=== PATIENT | female | born 1995 | race Caucasian/White ===

== ENCOUNTER 2023-04-22 17:54 | Inpatient (IN) ==
--- NOTE | 2023-04-22 18:11 | Emergency Department Note ---
Impression & Plan Bacteremia, Pyelonephritis of right kidney, Sepsis ED Provider Note NAME: DAY MALONE AGE: 27 SEX: F : 1995 ARRIVES VIA: Walk-In INFORMANT: Patient ED PROVIDER(S): Mekhi Bryant DO CHIEF COMPLAINT: Bacteremia HPI: Patient is a 27-year-old female who presents to the ER for dysuria, urgency, and frequency which has been present for the past week. She notes that Saturday night she started having fevers, chills, and feeling very rundown. Denies any headache or change in vision but does have back and flank pain. No dysuria urgency frequency. Has taken 2 doses of cefdinir since getting home. She notes that she has never had this before. No other medical problems. ADDITIONAL HISTORY OBTAINED: Per HPI Chronic Medical/Social Conditions Affecting Care: Per HPI PAST MEDICAL HISTORY:See Below PAST SURGICAL HISTORY:See Below FAMILY HISTORY:See Below SOCIAL HISTORY:See Below HOME MEDICATIONS:See Below ALLERGIES:See Below VITALS:See Below PHYSICAL EXAMINATION: GENERAL: Sitting up in bed, alert, well appearing, well nourished, no distress, non-toxic EYE EXAM: normal conjunctiva. PERRL and EOM's grossly intact. OROPHARYNX: mucous membranes are moist NECK: supple, no nuchal rigidity, no adenopathy, non-tender LUNGS: Clear to auscultation. Normal chest wall mechanics HEART: Tachycardic, S1 normal and S2 normal ABDOMEN: abdomen soft, non-tender, normo-active bowel sounds, no masses, no rebound or guarding. UPPER EXTREMITIES: upper extremities are grossly normal. LOWER EXTREMITIES: No pitting edema. NEURO EXAM: Normal sensorium, cranial nerves II-XII grossly intact, normal speech, no gross weakness of arms, no gross weakness of legs. MEDICAL DECISION MAKING: Patient is a 27-year-old female who presents ER for above-stated complaint. IV was established blood work was obtained. Labs show leukocytosis of 14,000. Mild anemia 11.8. BMP along with LFTs bilirubin and troponin was unremarkable. CRP was elevated as well as Pro-Jaiden. Blood cultures are positive for gram- negative bacilli. Patient was given IV fluids x 2 L and IV cefepime. She was updated at bedside and discussed with the hospitalist for further workup. Consults/Care Managements Discussions: Per MDM Triage Nursing notes reviewed. Limited review of prior medical records performed Vital Signs: reviewed and remarkable for febrile and tachycardic Differential diagnosis: Differential diagnosis includes etiologies such as sepsis, UTI, pneumonia, metabolic, electrolyte abnormalities, cardiac sources, intracerebral event, toxicologic, neurological, as well as others were entertained. ER treatment provided: See below Diagnostics interpreted by me include EKG and cardiac monitoring as listed below: -Cardiac Monitoring: An order was placed for continuous cardiac monitoring. The monitor shows a rate of 101 with sinus rhythm. -ECG: none -Laboratory studies:Interpreted by me as stated above in MDM and shown below. Imaging studies: Xrays: As interpreted by me:none CTs show: none Procedures:none Critical Care: None Past Med/Surg History Social History Smoking Status: Never smoker Hx Alcohol Use: Yes Hx Substance Use: No Preferred Language: Wolof Security And Compliance Analyst Required: No Beliefs That Will Affect Care: None Current Living Situation: Spouse Other Information That Helps Us Care for You: No Feels Safe at Home: Yes Safety Concerns: Feels Safe At This Time Assistive Devices: None Allergies Allergies Allergy/AdvReac Type Severity Reaction Status Date / Time Sulfa (Sulfonamide Allergy Unknown Hives Verified 04/21/23 15:55 Antibiotics) Home Meds Home Medications Medication Instructions Recorded Confirmed norgestimate 0.25 mg-ethinyl 1 tab PO HS 04/21/23 04/22/23 estradiol 35 mcg tablet (Sprintec (28)) sertraline 100 mg tablet 100 mg PO HS 04/21/23 04/22/23 cefdinir 300 mg capsule 300 mg PO Q12 04/22/23 04/22/23 Results & Data (ED) Vital Signs Vital Signs - 24 hr 04/22/23 17:59 04/22/23 18:34 04/22/23 18:46 Temperature 39.3 C H Temperature Source Oral Pulse Rate 120 H 113 H Pulse Rate from SpO2 Sensor 111 H Respiratory Rate 21 12 Blood Pressure 153/104 H 146/88 H Blood Pressure Mean 120 107 Pulse Oximetry 98 100 99 Oxygen Delivery Method Room Air Room Air Sepsis Recent Fever Within 48 Hours Yes Sepsis New/Unexplained Change in Mental Status N/A Sepsis Action Taken by Nursing No Action Required 04/22/23 18:46 Temperature Temperature Source Pulse Rate 111 H Pulse Rate from SpO2 Sensor Respiratory Rate Blood Pressure Blood Pressure Mean Pulse Oximetry Oxygen Delivery Method Sepsis Recent Fever Within 48 Hours Sepsis New/Unexplained Change in Mental Status Sepsis Action Taken by Nursing Laboratory Data 04/22/23 18:27 04/22/23 18:27 Lab Results 04/22/23 04/22/23 Range/Units 18:27 18:31 WBC 14.08 H (4.8-10.8) K/ul RBC 4.43 (4.20-5.40) M/uL Hgb 11.8 L (12.0-16.0) g/dl Hct 37.2 (37.0-47.0) % MCV 84.0 (80.0-100.0) fL MCH 26.6 (25.0-34.0) pg MCHC 31.7 L (32.0-36.0) g/dL RDW Std Deviation 44.7 (36.4-46.3) fL RDW Coeff of Sekou 14.5 (11.5-14.5) % Plt Count 216 (130-400) K/uL MPV 10.4 (9.4-12.4) fL Immature Gran % (Auto) 0.4 % Neut % (Auto) 79.9 % Lymph % (Auto) 9.4 % Gall[place] % (Auto) 9.6 % Eos % (Auto) 0.4 % Baso % (Auto) 0.3 % Neut # (Auto) 11.26 H (1.40-6.50) K/uL Lymph # (Auto) 1.32 (1.20-3.40) K/uL Gall[place] # (Auto) 1.35 H (0.11-0.59) K/uL Eos # (Auto) 0.05 (0.00-0.50) K/uL Baso # (Auto) 0.04 (0.00-0.20) K/uL Immature Gran # (Auto) 0.06 (0.01-0.20) K/uL Sodium 134 L (136-145) mmol/L Potassium 3.5 (3.5-5.1) mmol/L Chloride 102 (98-107) mmol/L Carbon Dioxide 23 (21-32) mmol/L Anion Gap 9 (3-11) BUN 8 (6-23) mg/dl Creatinine 0.79 (0.6-1.2) mg/dl Est Cr Clr Drug Dosing 107.2 ml/min Est GFR ( Amer) 119.7 ml/min Est GFR (Non-Af Amer) 103.3 ml/min BUN/Creatinine Ratio 10.1 (10-20) Glucose 103 H (70-99(Fasting)) mg/dl Lactate 0.9 (0.4-2.0) mmol/L Calcium 8.4 L (8.6-10.3) mg/dl Magnesium 1.6 L (1.7-2.4) mg/dl Total Bilirubin 0.4 (0.2-1.0) mg/dl Direct Bilirubin 0.1 (0-0.2) mg/dl AST 15 (13-39) U/L ALT 13 (7-52) U/L Alkaline Phosphatase 76 (34-104) U/L Troponin I High Sens 4.2 (0-14) pg/ml C-Reactive Protein 26.06 H (0-0.5) mg/dl Total Protein 6.7 (6.0-8.3) gm/dl Albumin 3.6 (3.4-5.0) gm/dl Procalcitonin 0.80 H (0-0.5) ng/ml Administered Medications Ciprofloxacin (Cipro / D5w) 400 mg in 200 mls @ 100 mls/hr IV Q12H [facility]; Protocol Stop: 05/02/23 20:44 Last Infusion: 04/22/23 22:41 Dose: Infused Documented By: [facility] Admin: 04/22/23 20:41 Dose: 100 mls/hr [place] [facility] [place] Sulfate/Dextrose (Magnesium Sulfate / D5w) 1 gm in 100 mls @ 50 mls/hr IV Q2H JENNIFER Stop: 04/23/23 01:44 Last Admin: 04/22/23 22:41 Dose: 50 mls/hr [place]ed [place] [facility] [place]: 04/22/23 22:40 Dose: Infused [place]ed [place] [facility] [place] Admin: 04/22/23 20:22 Dose: 50 mls/hr [place]ed [place] [facility] [place] Medications Acetaminophen (Acetaminophen 325 Mg Tab) 650 mg PO NOW STA Stop: 04/22/23 18:11 Last Admin: 04/22/23 18:26 Dose: 650 mg Documented By: Cefepime HCl (Maxipime) 2,000 mg in 20 mls @ 5 mls/min IV NOW STA; Protocol Stop: 04/22/23 18:13 Last Admin: 04/22/23 18:26 Dose: 5 mls/min Documented By: KATH Sodium Chloride (Nss) 1,000 mls @ 999 mls/hr IV .Q1H1M JENNIFER Stop: 04/22/23 20:15 Last Infusion: 04/22/23 20:29 Dose: Infused Documented By: Admin: 04/22/23 18:46 Dose: 999 mls/hr Documented By: Infusion: 04/22/23 18:46 Dose: Infused Documented By: Admin: 04/22/23 18:25 Dose: 999 mls/hr Documented By: KATH Ketorolac Tromethamine (Ketorolac Tromethamine 15 Mg/Ml Vial) 15 mg IV NOW ONE Stop: 04/22/23 18:15 Last Admin: 04/22/23 18:26 Dose: 15 mg Documented By: KATH Discharge Plan Visit Data Chief Complaint: Abnormal Labs/Diagnostic Testing Stated Complaint: ECOLI IN BLOOD, CALLED BACK IN ED Provider: Mekhi Bryant Discharge Problem: Bacteremia, Pyelonephritis of right kidney, Sepsis Patient Disposition: Admitted As Inpatient Discharge Instructions Interventions: ED Discharge Assessment Last Done: 04/22/23 22:46 Discharge Problem: Sepsis Qualifiers: Sepsis type: sepsis due to unspecified organism Sepsis acute organ dysfunction status: unspecified Qualified Code(s): A41.9 - Sepsis, unspecified organism
[2023-04-22] MEDS: SODIUM CHLORIDE 0.9% 1,000 ML IV SCH (18:25)
[2023-04-22] MEDS: CEFEPIME 2,000 MG/20 ML VIAL IV STA (18:26)
[2023-04-22] MEDS: KETOROLAC TROMETHAMINE 15 MG/ML VIAL IV ONE (18:26)
[2023-04-22] MEDS: ACETAMINOPHEN 325 MG TAB PO STA (18:26)
--- NOTE | 2023-04-22 18:34 | History & Physical Report ---
Date of Service April 22, 2023 Assessment & Plan (1) Sepsis: (2) Pyelonephritis of right kidney: (3) Febrile illness, acute: Plan Ms. Flanagan is a 27 year old woman with past medical history remarkable for depression who presented to [facility] ED due to right flank pain and positive blood culture PCR on 04/20. Patient with symptoms starting last Saturday, marked by dysuria and frequency. Patient states she went to urgent care on Saturday due to flank pain that started on the right side, then to [facility] ED on Saturday. Patient completed 2 days of cefdinir, but presented to ED today at request of ED given blood PCR + for e coli and enterobacterales. #Sepsis 2/2 GNR bacteremia #Acute complicated Pyelonephritis -WBC, tachycardia, +UA/blood cultures, fever 39C -s/p cefdinir x 2 days, cefepime upon admission Blood culture with GNR 04/20, pcr enterobacterales/e coli -Given above and iso pyelo, start IV cipro 400mg q12 -ID consult for recommendations on abx and duration -Follow cultures #Hyponatremia -Potentially iso poor po intake/active infection -Repeat BMP #Acute anemia, iso infection/bacteremia -No signs of bleed at this time -Anemia labs in am #Depression Continue 100mg sertraline DVT lovenox PCU tele Admission and Anticipated Discharge Date Admission Date: Time spent evaluating patient, direct bedside care, chart review, placing orders, interpretation of diagnostic studies, discussion with consultants, patient, and family members, as well as other required patient management activities is 60 minutes. History of Present Illness Chief Complaint: Right flank pain Primary Care Provider: NO PCP Ms. Flanagan is a 27 year old woman with past medical history remarkable for depression who presented to [facility] ED due to right flank pain and positive blood culture PCR on 04/20. Patient with symptoms starting last Saturday, marked by dysuria and frequency. Patient states she went to urgent care on Saturday due to flank pain that started on the right side, then to [facility] ED on Saturday. Patient completed 2 days of cefdinir, but presented to ED today at request of ED given blood PCR + for e coli and enterobacterales. In the ED, vitals were notable for BP of 140s-150s, HR of 110-120s, and O2 sat of high 90s on RA. Labs with WBC of 14K (down from 17 04/20), hgb 11.8 (14 day prior), mild hyponatremia 134, mag 1.[address] AB/P 04/20 with findings c/w right ascending pyelonephritis EKG with sinus tachycardia ED interventions: 2L NS, cefepime, tylenol Patient to be admitted to PCU tele for further evaluation and management of sepsis 2/2 acute complicated pyelonephritis with GNR bacteremia Allergies Allergy/AdvReac Type Severity Reaction Status Date / Time Sulfa (Sulfonamide Allergy Unknown Hives Verified 04/21/23 15:55 Antibiotics) Home Medications Medication Instructions Recorded Confirmed Type norgestimate 0.25 mg-ethinyl 1 tab PO HS 04/21/23 04/22/23 History estradiol 35 mcg tablet (Sprintec (28)) sertraline 100 mg tablet 100 mg PO HS 04/21/23 04/22/23 History cefdinir 300 mg capsule 300 mg PO Q12 04/22/23 04/22/23 History Past Med/Surg History Social History Smoking Status: Never smoker Preferred Language: Tajik Feels Safe at Home: Yes Review of Systems Review of Systems: Constitutional: (+) fever/chills, (-) recent loss of weight, (-) appetite changes, (-) night sweats. Head: (-) headache, (-) dizziness. Eye: (-) blurring of vision, (-) double vision, (-) redness. Ear: (-) hearing loss, (-) discharge, (-) vertigo Nose: (-) discharge, (-) bleeding, (-) congestion, (-) post nasal drip. Throat: (-) sore throat, (-) hoarseness of voice, (-) odynophagia. Cardiovascular: (-) chest pain, (-) palpitations, (-) syncope, (-) orthopnea, (- ) PND, (-) leg swelling. Respiratory: (-) shortness of breath, (-) cough, (-) wheezing, (-) hemoptysis. Neuro: (-) weakness in extremities, (-) numbness, (-) tingling, (-) tremor. Gastrointestinal: (-) belly pain, (-) belly distension, (-) nausea, (-) vomiting, (-) diarrhea, (-) constipation Genitourinary: (-) hematuria, (+) dysuria, (-) polyuria, (-) hesitancy, (+) frequency, (-) urinary incontinence. Musculoskeletal: (-) myalgia, (-) arthralgia. Skin: (-) rashes. Endocrine: (-) heat/cold intolerance. Psychiatry: (-) depression, (-) hallucination. Physical Exam Physical Exam: GENERAL APPEARANCE: AxOx4, ill appearing woman, no acute distress. HEENT: NC, AT. MMM. EOMI, clear conjunctiva, oropharynx clear. NECK: Supple without lymphadenopathy. No stiffness or restricted ROM. HEART: tachycardic, normal S1/S1, no m/r/g LUNGS: CTAB, moving air well. No crackles or wheezes are heard. ABDOMEN: Soft, nontender, nondistended with good bowel sounds heard. BACK: + right CVAT, no obvious deformity. EXTREMITIES: Without cyanosis, clubbing or edema. NEUROLOGICAL: Grossly nonfocal. Alert and oriented, moving all 4 extremities. CN not formally tested but appear grossly intact. Skin: Warm and dry without any rash. Results & Data Results & Data Vital Signs (Past 12 Hours) Vital Signs Temp Pulse Resp BP Pulse Ox O2 Del Method 04/22/23 17:59 39.3 C H 120 H 21 153/104 H 98 Room Air Laboratory Results Short CBC 04/22/23 Range/Units 18:27 WBC 14.08 H (4.8-10.8) K/ul Hgb 11.8 L (12.0-16.0) g/dl Hct 37.2 (37.0-47.0) % Plt Count 216 (130-400) K/uL BMP 04/22/23 18:27 Sodium 134 L Potassium 3.5 Chloride 102 Carbon Dioxide 23 BUN 8 Creatinine 0.79 Glucose 103 H Calcium 8.4 L Liver Function 04/22/23 Range/Units 18:27 Total Bilirubin 0.4 (0.2-1.0) mg/dl Direct Bilirubin 0.1 (0-0.2) mg/dl AST 15 (13-39) U/L ALT 13 (7-52) U/L Alkaline Phosphatase 76 (34-104) U/L Albumin 3.6 (3.4-5.0) gm/dl Medications Administered Home Medications Medication Instructions Recorded Confirmed Last Taken norgestimate 0.25 mg-ethinyl 1 tab PO HS 04/21/23 04/22/23 04/20/23 estradiol 35 mcg tablet (Sprintec (28)) sertraline 100 mg tablet 100 mg PO HS 04/21/23 04/22/23 04/20/23 cefdinir 300 mg capsule 300 mg PO Q12 04/22/23 04/22/23 Unknown Active Medications Generic Name Dose Route Start Last Admin Trade Name Freq PRN Reason Stop Dose Admin Sodium Chloride 1,000 mls @ 999 mls/hr 04/22/23 18:15 04/22/23 18:46 Nss IV 04/22/23 20:15 999 mls/hr .Q1H1M JENNIFER Administration
[2023-04-22 19:07] LABS: Albumin Level 3.6 gm/dl (3.4-5.0); BUN Creatinine Ratio 10.1 (10-20); Basophils # (auto) 0.04 K/uL (0.00-0.20); Basophils % (auto) 0.3 %; Bilirubin Direct 0.1 mg/dl (0-0.2); Bilirubin,Total 0.4 mg/dl (0.2-1.0); Calcium 8.4 mg/dl (8.6-10.3); Creatinine Clr Calc Pharmacy 107.2 ml/min; Eosinophils # (auto) 0.05 K/uL (0.00-0.50); Eosinophils % (auto) 0.4 %; Est GFR (African American) 119.7 ml/min; Est GFR (Non-African American) 103.3 ml/min; Hematocrit (blood only) 37.2 % (37.0-47.0); Hemoglobin 11.8 g/dl (12.0-16.0); Immature Granulocytes # (auto) 0.06 K/uL (0.01-0.20); Immature Granulocytes % (auto) 0.4 %; Lymphocytes # (auto) 1.32 K/uL (1.20-3.40); Lymphocytes % (auto) 9.4 %; Magnesium 1.6 mg/dl (1.7-2.4); Mean Corpuscular Hemoglobin 26.6 pg (25.0-34.0); Mean Corpuscular Hgb Conc 31.7 g/dL (32.0-36.0); Mean Platelet Volume 10.4 fL (9.4-12.4); Monocytes # (auto) 1.35 K/uL (0.11-0.59); Monocytes % (auto) 9.6 %; Neutrophils # (auto) 11.26 K/uL (1.40-6.50); Neutrophils % (auto) 79.9 %; Platelet Count 216 K/uL (130-400); Potassium 3.5 mmol/L (3.5-5.1); RDW Coefficient of Variation 14.5 % (11.5-14.5); RDW Standard Deviation 44.7 fL (36.4-46.3); Red Blood Count 4.43 M/uL (4.20-5.40); Total Protein 6.7 gm/dl (6.0-8.3); White Blood Count 14.08 K/ul (4.8-10.8)
[2023-04-22 19:14] LABS: Troponin I High Sensitivity 4.2 pg/ml (0-14)
[2023-04-22 20:11] LABS: C Reactive Protein 26.06 mg/dl (0-0.5)
[2023-04-22] MEDS: MAGNESIUM SULFATE / D5W 1 GM/100 ML BAG IV SCH (20:22)
[2023-04-22] MEDS: CIPROFLOXACIN / D5W 400 MG/200 ML BAG IV SCH (20:41)
[2023-04-22] MEDS ORDERED: ONDANSETRON INJ 2 MG/ML 2 ML VIAL IV PRN (23:36)
[2023-04-22] MEDS ORDERED: POLYETHYLENE (MIRALAX) 17 GM PACK PO PRN (23:36)
[2023-04-23] MEDS: SERTRALINE HCL 100 MG TABLET PO SCH (00:17)
[2023-04-23] MEDS: ENOXAPARIN INJ 40 MG/0.4 ML SYR SQ SCH (00:18)
[2023-04-23] MEDS: ACETAMINOPHEN 325 MG TAB PO PRN (03:10)
[2023-04-23 06:44] LABS: Hematocrit (blood only) 34.8 % (37.0-47.0); Hemoglobin 11.6 g/dl (12.0-16.0); Mean Corpuscular Hemoglobin 27.5 pg (25.0-34.0); Mean Corpuscular Hgb Conc 33.3 g/dL (32.0-36.0); Mean Corpuscular Volume 82.5 fL (80.0-100.0); Mean Platelet Volume 10.4 fL (9.4-12.4); Platelet Count 226 K/uL (130-400); RDW Coefficient of Variation 14.6 % (11.5-14.5); RDW Standard Deviation 43.8 fL (36.4-46.3); Red Blood Count 4.22 M/uL (4.20-5.40); White Blood Count 12.44 K/ul (4.8-10.8)
[2023-04-23 07:19] LABS: Albumin Globulin Ratio 1.2 (0.9-2); Albumin Level 3.4 gm/dl (3.4-5.0); BUN Creatinine Ratio 10.2 (10-20); Bilirubin,Total 0.3 mg/dl (0.2-1.0); Calcium 7.6 mg/dl (8.6-10.3); Creatinine Clr Calc Pharmacy 129.3 ml/min; Est GFR (African American) 146.6 ml/min; Est GFR (Non-African American) 126.5 ml/min; Globulin 2.9 gm/dl (2.5-4.0); Magnesium 2.2 mg/dl (1.7-2.4); Potassium 3.5 mmol/L (3.5-5.1); Total Protein 6.3 gm/dl (6.0-8.3)
--- OUTSIDE RECORDS SUMMARY | 2023-04-23 07:19 | External Medical Summary | Summary of Care ---
Author Name Unknown Organization [facility] Address [address] [place] [address] Phone [phone] Care Team Providers Care Coal Inspector Name Role Phone Unavailable Primary Care Provider Unavailabl e Reason for Visit * Reason Comments Urinary Tract Infection Symptoms Pt here for UTI symptoms for 7-10 day but got worse last night Encounter Details Date Type Department Care Team ([facility] st Contact Info) Description 04/21/2023 12:45 PM EDT Convenient Care Visit [facility] [address] [place] [address] Leyda Donnelly PA-C [address], [place] [id number] Pyelonephritis*; Dysuria Allergies Active Allergy Reactions Criticality Noted Date Comments Sulfa Antibiotics Rash 08/05/2009 documented as of this encounter (statuses as of 04/21/2023) Medications Medication Sig Dispensed Refills Start Date End Date Status Sertraline HCl 100 MG Oral Tablet (Zoloft) Take 1 Tablet by mouth in the morning. 0 Active Norgestimate-Eth Estradiol 0.25-35 MG-MCG Oral Tablet (Sprintec 28) Take 1 Tablet by mouth in the morning. 0 Active documented as of this encounter (statuses as of 04/21/2023) Active Problems No known active problems documented as of this encounter (statuses as of 04/21/2023) Immunizations Name Administration Dates Next Due DTaP Dipth/Tet/Acell Pertussis (Infanrix), Peds 03/11/2001,09/23/1997,03/28/1997,11/02,1996 HIB PRP-T, 4 dose (ActHib) 09/23/1997,,1996,09/07 HPV Vaccine, 4-Valent 04/06/2009,07/26/2008,05/12 Hepatitis B, 0-19 yrs 09/23/1997,1996,06/12 IPV - Polio Virus Vaccine (Inact) 2001,09/23/1997,1996,09/07 MMR - Measles/Mumps/Rubella Vaccine 07/04/2001,0 09/23/1997 Meningococcal Conjugate Vacc ine (Menactra/Menveo) 04/06/2009 Seasonal Influenza, Split, I IV3, With Preserve, Inj 12/25/2012,12/14/2009 TDAP (age 11 and older)(Adacel) 11/13/2007 Varicella Vaccine (Chicken Pox) 04/06/2009,07/25 documented as of this encounter Social History Tobacco Use Types Packs/Day Years Used Date Smoking Tobacco: Never Alcohol Use Standard Drinks/Week Comments No 0 (1 standard drink = 0.6 oz pur e alcohol) Sex and Gender Information Value Date Recorded Sex Assigned at Not on file Gender Identity Not on file Sexual Orientation Not on file Job Start Date Occupation Industry Not on file Not on file Not on file documented as of this encounter Last Filed Vital Signs Vital Sign Reading Time Taken Comments Blood Pressure 118/70 04/21/2023 12:49 PM EDT Pulse 128 04/21/2023 12:49 PM EDT Temperature 38.6 C (101.4 F) 04/21/2023 12:49 PM EDT Respiratory Rate 16 04/21/2023 12:49 PM EDT Oxygen Saturation 98% 04/21/2023 12:49 PM EDT Inhaled Oxygen Concentration - - Weight 81.3 kg (179 lb 3.2 oz) 04/21/2023 12:49 PM EDT Height 159.1 cm (5' 2.64") 04/21/2023 12:49 PM E DT Body Mass Index 32.11 04/21/2023 12:49 PM EDT documented in this encounter Progress Notes * Leyda Donnelly PA-C - 04/21/2023 3:47 PM EDT Subjective: HPI: Pt is a 27 year old YO female who presents c/o: Dysuria: yes Hematuria: no Increased Frequency: yes Urgency: yes Flank Pain: right Abdominal Pain: little Vaginal D/C: no Fever: yes Malaise: yes UTI PMHX: no Renal Stone PMHX: no Gential Lesion/Rash: no started about a week ago and seemed to get better but several days ago symptoms returned Review of Systems Constitutional: Positive for activity change, appetite change, chills, diaphoresis (a lot of sweating now\\), fatigue and fever. HENT: Negative. Respiratory: Hard to take a deep breath due to pain in right flank. Denies wheezing of chest pain Cardiovascular: Negative. Gastrointestinal: Positive for nausea. ++R flank pain Skin: Bruising from massage by parnter over the right flank PMH: There is no problem list on file for this patient. Current Outpatient Medications Medication Sig Dispense Refill Sertraline HCl 100 MG Oral Tablet (Zoloft) Take 1 Tablet by mouth in the morning. Norgestimate-Eth Estradiol 0.25-35 MG-MCG Oral Tablet (Sprintec 28) Take 1 Tablet by mouth in the morning. No current facility-administered medications for this visit. Past Medical History: Diagnosis Date Acne Past Surgical History: Procedure Laterality Date INFORMATION lipoma removal age 6 Review of patient's allergies indicates: Allergen Reactions Sulfa Antibiotics Rash Objective: BP 118/70 | Pulse 128 | Temp (!) 38.6 C (101.4 F) | Resp 16 | Ht 1.591 m (5' 2.64") | Wt 81.3 kg (179 lb 3.2 oz) | SpO2 98% | BMI 32.11 kg/m | BSA 1.9 m Physical Exam Constitutional: Appearance: She is ill-appearing, toxic-appearing and diaphoretic. Cardiovascular: Rate and Rhythm: Regular rhythm. Tachycardia present. Heart sounds: Normal heart sounds. Pulmonary: Effort: Pulmonary effort is normal. Breath sounds: Normal breath sounds. Abdominal: General: There is no distension. Tenderness: There is no abdominal tenderness. There is right CVA tenderness (severe). There is no left CVA tenderness, guarding or rebound. Skin: Findings: Bruising (over the right flank) present. No erythema. Neurological: Mental Status: She is alert and oriented to person, place, and time. Psychiatric: Mood and Affect: Mood normal. Behavior: Behavior normal. ASSESSMENT/PLAN: Pyelonephritis (Primary) Dysuria - URINALYSIS, POINT OF CARE (ENTER/EDIT) Recommended that pt go directly to the ER. Pt might be becoming septic and needs higher level of care Called ED and spoke w charge nurse who took report Leyda Donnelly PA-C * Leyda Donnelly PA-C - 04/21/2023 3:19 PM EDT Subjective: HPI: Pt is a 27 year old YO female who presents c/o: Dysuria: yes Hematuria: no Increased Frequency: yes Urgency: yes Flank Pain: right Abdominal Pain: little Vaginal D/C: no Fever: yes Malaise: yes UTI PMHX: no Renal Stone PMHX: no Gential Lesion/Rash: no started about a week ago and seemed to get better but several days ago symptoms returned Review of Systems Constitutional: Positive for activity change, appetite change, chills, diaphoresis (a lot of sweating now\\), fatigue and fever. HENT: Negative. Respiratory: Hard to take a deep breath due to pain in right flank. Denies wheezing of chest pain Cardiovascular: Negative. Gastrointestinal: Positive for nausea. ++R flank pain Skin: Bruising from massage by parnter over the right flank PMH: There is no problem list on file for this patient. Current Outpatient Medications Medication Sig Dispense Refill Sertraline HCl 100 MG Oral Tablet (Zoloft) Take 1 Tablet by mouth in the morning. Norgestimate-Eth Estradiol 0.25-35 MG-MCG Oral Tablet (Sprintec 28) Take 1 Tablet by mouth in the morning. No current facility-administered medications for this visit. Past Medical History: Diagnosis Date Acne Past Surgical History: Procedure Laterality Date INFORMATION lipoma removal age 6 Review of patient's allergies indicates: Allergen Reactions Sulfa Antibiotics Rash Objective: BP 118/70 | Pulse 128 | Temp (!) 38.6 C (101.4 F) | Resp 16 | Ht 1.591 m (5' 2.64") | Wt 81.3 kg (179 lb 3.2 oz) | SpO2 98% | BMI 32.11 kg/m | BSA 1.9 m Physical Exam Constitutional: Appearance: She is ill-appearing, toxic-appearing and diaphoretic. Cardiovascular: Rate and Rhythm: Regular rhythm. Tachycardia present. Heart sounds: Normal heart sounds. Pulmonary: Effort: Pulmonary effort is normal. Breath sounds: Normal breath sounds. Abdominal: General: There is no distension. Tenderness: There is no abdominal tenderness. There is right CVA tenderness (severe). There is no left CVA tenderness, guarding or rebound. Skin: Findings: Bruising (over the right flank) present. No erythema. Neurological: Mental Status: She is alert and oriented to person, place, and time. Psychiatric: Mood and Affect: Mood normal. Behavior: Behavior normal. ASSESSMENT/PLAN: Pyelonephritis (Primary) Dysuria - URINALYSIS, POINT OF CARE (ENTER/EDIT) Recommended that pt go directly to the ER. Pt might be becoming septic and needs higher level of care Called ED and spoke w charge nurse who took report Leyda Donnelly PA-C * Leyda Donnelly PA-C - 04/21/2023 1:07 PM EDT Subjective: HPI: Pt is a 27 year old YO female who presents c/o: Dysuria: yes starting last week, seemed to get better about middle of the past week and was ok until last night and then went down hill last night quickly Hematuria: no Increased Frequency: yes Urgency: yes Flank Pain: right Abdominal Pain: no Vaginal D/C: no Fever: yes Malaise: yes UTI PMHX: no Renal Stone PMHX: no Gential Lesion/Rash: no Review of Systems Constitutional: Negative for activity change, appetite change, fatigue and fever. HENT: Negative for congestion, ear pain, postnasal drip, rhinorrhea, sinus pressure, sinus pain, sore throat and voice change. Eyes: Negative for discharge and redness. Respiratory: Negative for cough, chest tightness, shortness of breath and wheezing. Pain with deep breathing Cardiovascular: Negative for chest pain. Gastrointestinal: Negative for abdominal pain, diarrhea, nausea and vomiting. Musculoskeletal: Negative for arthralgias, neck pain and neck stiffness. Allergic/Immunologic: Negative for environmental allergies. Neurological: Negative for dizziness. PMH: There is no problem list on file for this patient. Current Outpatient Medications Medication Sig Dispense Refill Sertraline HCl 100 MG Oral Tablet (Zoloft) Take 1 Tablet by mouth in the morning. Norgestimate-Eth Estradiol 0.25-35 MG-MCG Oral Tablet (Sprintec 28) Take 1 Tablet by mouth in the morning. No current facility-administered medications for this visit. Past Medical History: Diagnosis Date Acne Past Surgical History: Procedure Laterality Date INFORMATION lipoma removal age 6 Review of patient's allergies indicates: Allergen Reactions Sulfa Antibiotics Rash Objective: BP 118/70 | Pulse 128 | Temp (!) 38.6 C (101.4 F) | Resp 16 | Ht 1.591 m (5' 2.64") | Wt 81.3 kg (179 lb 3.2 oz) | SpO2 98% | BMI 32.11 kg/m | BSA 1.9 m Physical Exam Cardiovascular: Rate and Rhythm: Normal rate and regular rhythm. Heart sounds: Normal heart sounds. Pulmonary: Effort: Pulmonary effort is normal. Breath sounds: Normal breath sounds. ASSESSMENT/PLAN: Dysuria (Primary) - URINALYSIS, POINT OF CARE (ENTER/EDIT) Leyda Donnelly PA-C * Leyda Donnelly PA-C - 04/21/2023 1:04 PM EDT Subjective: There are no exam notes on file for this visit. HPI: Pt is a 27 year old YO female who presents c/o: Dysuria: yes Hematuria: no Increased Frequency: yes Urgency: yes Flank Pain: right Abdominal Pain: little Vaginal D/C: no Fever: yes Malaise: yes UTI PMHX: no Renal Stone PMHX: no Gential Lesion/Rash: no Review of Systems Constitutional: Positive for activity change, appetite change, chills, diaphoresis (a lot of sweating now\\), fatigue and fever. HENT: Negative. Respiratory: Hard to take a deep breath due to pain in right flank. Denies wheezing of chest pain Cardiovascular: Negative. Gastrointestinal: Positive for nausea. ++R flank pain Skin: Bruising from massage by parnter over the right flank PMH: There is no problem list on file for this patient. Current Outpatient Medications Medication Sig Dispense Refill Sertraline HCl 100 MG Oral Tablet (Zoloft) Take 1 Tablet by mouth in the morning. Norgestimate-Eth Estradiol 0.25-35 MG-MCG Oral Tablet (Sprintec 28) Take 1 Tablet by mouth in the morning. No current facility-administered medications for this visit. Past Medical History: Diagnosis Date Acne Past Surgical History: Procedure Laterality Date INFORMATION lipoma removal age 6 Review of patient's allergies indicates: Allergen Reactions Sulfa Antibiotics Rash Objective: BP 118/70 | Pulse 128 | Temp (!) 38.6 C (101.4 F) | Resp 16 | Ht 1.591 m (5' 2.64") | Wt 81.3 kg (179 lb 3.2 oz) | SpO2 98% | BMI 32.11 kg/m | BSA 1.9 m Physical Exam Constitutional: Appearance: She is ill-appearing, toxic-appearing and diaphoretic. Cardiovascular: Rate and Rhythm: Regular rhythm. Tachycardia present. Heart sounds: Normal heart sounds. Pulmonary: Effort: Pulmonary effort is normal. Breath sounds: Normal breath sounds. Abdominal: General: There is no distension. Tenderness: There is no abdominal tenderness. There is right CVA tenderness (severe). There is no left CVA tenderness, guarding or rebound. Skin: Findings: Bruising (over the right flank) present. No erythema. Neurological: Mental Status: She is alert and oriented to person, place, and time. Psychiatric: Mood and Affect: Mood normal. Behavior: Behavior normal. ASSESSMENT/PLAN: Dysuria (Primary) - URINALYSIS, POINT OF CARE (ENTER/EDIT) Leyda Donnelly PA-C documented in this encounter Plan of Treatment Health Maintenance Due Date Last Done Comments HIV Screening 07/01/2011 Hepatitis C Screening 2014 Depression Screening 07/21/2015 07/20/2014 (Discusse d) Pap Smear 2017 DTaP,Tdap,and Td Vaccines (7 - Td or Tdap) 11/12/2017 11/13/2007, 03/11/2001, 09/23/1997, Additional history exists COVID-19 Vaccine (2022-24 season) 2022 Influenza Vaccine (FLU shot) (#1) 2022 12/25/2012, 12/14/2009 Hepatitis B Completed 09/23/1997, 08/12, 1996 GARDASIL-HPV IMMUNIZATION SERIES Completed 04/06/2009, 07/26/2008, 05/26/2008 Gonorrhea / Chlamydia Screen Discontinued 07/20/2014 (Not indicated), 09/24/2012 (Not indicated) MENINGOCOCCAL (MENACTRA/MENVEO) Addressed 07/20/2014 (Discussed), 07/20/2014 (Refused), 04/06/2009 Overridden with the intention of not completing the topic Pneumococcal Vaccine: Pediatrics (0 to 5 Years) and At-Risk Patients (6 to 64 Years) Aged Out No longer eligible based on patient's age to complete this topic documented as of this encounter Medical Devices Not on filedocumented as of this encounter Procedures Procedure Name Priority Date/Time Associated Diagnosis Comments URINALYSIS, POINT OF CARE (ENTER/EDIT) Routine 04/21/2023 Dysuria documented in this encounter Results * (ABNORMAL) URINALYSIS, POINT OF CARE (ENTER/EDIT) (04/21/2023) Color, Urine Yellow Yellow or Light Yellow Clarity, Urine Clear Clear Glucose, Urine Negative Negative mg/dL Bilirubin, Urine Negative Negative Ketone, Urine Negative Negative mg/dL Specific [place], Urine 1.025 1.003 - 1.030 Blood, Urine Small Negative pH, Urine 7.5 5.0 - 7.5 units Protein, Urine Trace Negative mg/dL Urobilinogen, Urine 0.2 0.2 - 1.0 mg/dL Nitrite, Urine Negative Negative Esterase, Urine Large Negative Urine 04/21/2023 Leyda Donnelly PA-C LAB POINT OF C ARE TEST ENTER/EDIT ORDERABLES documented in this encounter Visit Diagnoses Diagnosis Pyelonephritis- Primary Pyelonephritis, unspecified Dysuria documented in this encounter
[2023-04-23] MEDS: SODIUM CHLORIDE 0.9% 1,000 ML IV SCH (09:25)
[2023-04-23] MEDS: IRON SUCROSE 300 MG in SODIUM CHLORIDE 0.9% 250 ML IV SCH (10:11)
[2023-04-23] MEDS: CYANOCOBALAMIN (B-12) 500 MCG TABLET PO SCH (10:11)
[2023-04-23] MEDS: POT PHOSPHATE MONOBASIC W/ SOD TAB PO SCH (10:12)
--- NOTE | 2023-04-23 10:40 | Infectious Disease Consult ---
Date of Service April 23, 2023 Telehealth Information I performed this visit using a real-time telehealth connection between my location and the patients location ([facility]). After connecting through interactive tele-video, patient was identified by name and date of and/or wristband check.Patient (or authorized healthcare provider relations representative) was informed that this was a telemedicine visit and it was being conducted confidentially over secure lines. My office door was closed and no on e else was present in the room with me.Patient (or authorized healthcare provider relations representative) provided consent to proceed with the visit, expressed an understanding of privacy and security of the telemedicine visit, and gave permission to have a hospital provider relations representative in the room in order to assist with the visit and to conduct portions of the visit, as needed. I informed the patient (or authorized healthcare provider relations representative) that I reviewed their record and presented the opportunity for them to ask any questions regarding the visit today. The patient agreed to participate. Assessment & Plan (1) Bacteremia: Plan: Impression: Sepsis resolved E coli bacteremia w/ acute pyelonephritis Hx of allergy to sulfa (hives) Recommendations: - Stop Cipro (susceptibility is not available, yet) - Start Ceftriaxone 1 gm iv qd today: molecular testing has ruled out commone ESBL strains - Anticipate total 7-14 days of abx therapy, depending on which oral abx to use upon discharge. She will need at least 3-5 days of IV or IV-equivalent abx before transitioning to an oral abx. - Final rec to follow once the susceptibility is available - Probiotic while on abx therapy - Check HIV antigen and antibody and hepatitis C antibody More than 50% of [id number] visit was spent counseling and coordinating care pertaining to the patient's infection diagnosis, additional work-up, and treatment option(s) as well as potential adverse events of the treatment. (2) Pyelonephritis of right kidney: History of Present Illness History of Present Illness This 27 y/o female (Mera) w/ hx of depression, presented to [facility] ED for R flank pain, dysuria, urinary frequency, fever, chills, [place], and fast heart rate, and was found to have sepsis w/ GNR bacteremia secondary to acute pylenephritis. She initially went to an Urgent Care last Saturday for the same symptoms and then [facility] ED on Saturday. She was discharged to home and took cefdinir for 2 days. She was called to returned to hospital for positive blood cultures w/ E coli. Leukocytosis was noted w/ fever. Sexually active w/ one partner, no hx of STI. Never been tested for hep C or HIV. She feels better now: no fever, chills, n/v, abd pain, coughing, cp, sob, or urinar symptoms. R flank pain has improved but still there. Allergies Allergy/AdvReac Type Severity Reaction Status Date / Time Sulfa (Sulfonamide Allergy Unknown Hives Verified 04/21/23 15:55 Antibiotics) Home Medications Medication Instructions Recorded Confirmed Type norgestimate 0.25 mg-ethinyl 1 tab PO HS 04/21/23 04/22/23 History estradiol 35 mcg tablet (Sprintec (28)) sertraline 100 mg tablet 100 mg PO HS 04/21/23 04/22/23 History cefdinir 300 mg capsule 300 mg PO Q12 04/22/23 04/22/23 History Patient History Social History Smoking Status: Never smoker Hx Alcohol Use: Yes Hx Substance Use: No Preferred Language: Bangladeshi Dipper Fish Required: No Beliefs That Will Affect Care: None Current Living Situation: Spouse Other Information That Helps Us Care for You: No Feels Safe at Home: Yes Safety Concerns: Feels Safe At This Time Assistive Devices: None Review of Systems as HPI and all others negative Physical Exam Gen: no acute distress Lungs: breathing comfortably on room air Neuro: alert, oriented to time, place, and person, conversant Results & Data Vital Signs (Past 12 Hours) Vital Signs Temp Pulse Pulse Resp BP BP Pulse Ox 04/23/23 07:50 100 H 04/23/23 07:40 36.9 C 94 H 18 129/85 97 04/23/23 02:59 37 C 101 H 16 134/85 99 04/22/23 23:45 04/22/23 23:30 37.1 C 16 129/84 96 04/22/23 22:42 91 H O2 Del Method 04/23/23 07:50 04/23/23 07:40 Room Air 04/23/23 02:59 Room Air 04/22/23 23:45 Room Air 04/22/23 23:30 Room Air 04/22/23 22:42 Laboratory Results WBC 17K ->-> 12.44K H 11.6 Plt 226K Cr 0.59 AST 12, alt 11 CRP 26 Diagnostic Findings UA: LE 3+ U cx: NGTD Blood cx (04/20): E coli (1 of 4) Blood cx (04/21): NGTD CT A/P: Findings are compatible with ascending urinary infection including right-sided pyelonephritis. Renal infarct is considered less likely
--- NOTE | 2023-04-23 14:43 | Hospitalist Progress Note ---
Date of Service April 23, 2023 Assessment & Plan (1) Sepsis: (2) Pyelonephritis of right kidney: (3) Febrile illness, acute: Plan Per admitting services with addendum: Ms. Flanagan is a 27 year old woman with past medical history remarkable for depression who presented to [facility] ED due to right flank pain and positive blood culture PCR on 04/20. Patient with symptoms starting last Saturday, marked by dysuria and frequency. Patient states she went to urgent care on Saturday due to flank pain that started on the right side, then to [facility] ED on Saturday. Patient completed 2 days of cefdinir, but presented to ED today at request of ED given blood PCR + for e coli and enterobacterales. SEPSIS SECONDARY TO ACUTE PYELONEPHRITIS, BACTEREMIA -WBC, tachycardia, +UA/blood cultures, fever 39C -s/p cefdinir x 2 days, cefepime upon admission Blood culture with GNR 04/20, pcr enterobacterales/e coli -Given above and iso pyelo, start IV cipro 400mg q12 04/22 Sepsis resolved Clinically improving Blood cultures April 20: Gram-negative bacilli 1 out of 2 bottles Serology PCR April 20: E. coli, Enterobacterales detected Blood cultures April 21: Pending Urine culture: Pending ID consulted Recommend to transition from Cipro IV to ceftriaxone IV day #1 Will need at least 3 to 5 days of IV antibiotic prior to transitioning to oral antibiotic Final recommendations to follow once susceptibilities available Check HIV antigen antibody, hepatitis C antibody ANEMIA SECONDARY TO IRON DEFICIENCY, B12 DEFICIENCY -Iron level 12 Venofer 300 mg IV given Ferrous sulfate twice daily started -Cyanocobalamin 2000 mg p.o. daily started Will need further evaluation and management as an outpatient HYPOPHOSPHATEMIA Phosphorus 2.1 Oral replacement ordered DEPRESSION Continue 100mg sertraline DVT lovenox Disposition Lives at home plan of care discussed with patient in detail and at length all questions answered She is understanding, agreeable, comfortable with the plan of care Admission and Anticipated Discharge Date Admission Date: April 22, 2023 Subjective Follow-up for acute pyelonephritis, bacteremia, sepsis, etc. Seen with JASON Snell at the bedside throughout whole encounter Sitting up in bed, working on her computer, in good spirits States that she feels improved compared to yesterday Right sided flank/back pain improving No problems with urination No fevers or chills today No headache, dizziness, nausea or vomiting, abdominal pain No chest pain, shortness of breath, palpitations No other new symptoms Review of Systems Review of Systems: all noted and negative except for above Physical Exam Physical Exam: General- oriented x 3, not in distress, speaks in sentences with no effort or accessory muscle use Eyes- anicteric Neck- no JVD Lungs- clear breath sounds bilaterally, no rales/wheezes Heart- normal rate, regular rhythm; no murmurs Abdomen- normal bowel sounds, nondistended, soft, nontender No CVA tenderness Extremities- no pretibial edema, no calf tenderness Neuro- alert, oriented x 3; no gross focal neurologic deficits Skin- warm & dry Results & Data Results & Data Vital Signs (Past 12 Hours) Vital Signs Temp Pulse Pulse Resp BP Pulse Ox O2 Del Method 04/23/23 07:50 100 H 04/23/23 07:40 36.9 C 94 H 18 129/85 97 Room Air 04/23/23 02:59 37 C 101 H 16 134/85 99 Room Air all noted and reviewed including below (1) Sepsis Sepsis acute organ dysfunction status: unspecified Sepsis type: sepsis due to unspecified organism Qualified Code(s): A41.9 - Sepsis, unspecified organism
[2023-04-23] MEDS: cefTRIAXone SODIUM 1,000 MG in DEXTROSE 5 % MINI-B 50 ML IV SCH (15:28)
[2023-04-23] MEDS: ADVANCED PROBIOTIC 625 MG CAPSULE PO SCH (15:28)
[2023-04-24 06:23] LABS: Basophils # (auto) 0.03 K/uL (0.00-0.20); Basophils % (auto) 0.4 %; Eosinophils # (auto) 0.16 K/uL (0.00-0.50); Eosinophils % (auto) 1.9 %; Hematocrit (blood only) 36.3 % (37.0-47.0); Hemoglobin 11.9 g/dl (12.0-16.0); Immature Granulocytes # (auto) 0.03 K/uL (0.01-0.20); Immature Granulocytes % (auto) 0.4 %; Lymphocytes # (auto) 2.23 K/uL (1.20-3.40); Lymphocytes % (auto) 26.5 %; Mean Corpuscular Hemoglobin 27.4 pg (25.0-34.0); Mean Corpuscular Hgb Conc 32.8 g/dL (32.0-36.0); Mean Corpuscular Volume 83.4 fL (80.0-100.0); Mean Platelet Volume 10.7 fL (9.4-12.4); Monocytes % (auto) 9.5 %; Neutrophils # (auto) 5.16 K/uL (1.40-6.50); Neutrophils % (auto) 61.3 %; Platelet Count 229 K/uL (130-400); RDW Coefficient of Variation 14.4 % (11.5-14.5); RDW Standard Deviation 43.9 fL (36.4-46.3); Red Blood Count 4.35 M/uL (4.20-5.40); White Blood Count 8.41 K/ul (4.8-10.8)
[2023-04-24 06:45] LABS: BUN Creatinine Ratio 6.5 (10-20); Calcium 7.9 mg/dl (8.6-10.3); Creatinine Clr Calc Pharmacy 127.2 ml/min; Est GFR (African American) 144.2 ml/min; Est GFR (Non-African American) 124.4 ml/min; Phosphorus 3.1 mg/dl (2.5-4.9); Potassium 3.6 mmol/L (3.5-5.1)
--- NOTE | 2023-04-24 14:18 | Hospitalist Progress Note ---
Date of Service April 24, 2023 Assessment & Plan (1) Sepsis: (2) Pyelonephritis of right kidney: (3) Febrile illness, acute: Plan Ms. Flanagan is a 27 year old woman with past medical history remarkable for depression who presented to [facility] ED due to right flank pain and positive blood culture PCR on 04/20. SEPSIS SECONDARY TO ACUTE PYELONEPHRITIS E. coli bacteremia -WBC, tachycardia, +UA/blood cultures, fever 39C on admission -s/p cefdinir x 2 days, cefepime upon admission Blood culture with E. coli; pansensitive CT abdomen/pelvis consistent with right-sided pyelonephritis Infectious disease consulted; recommend at least 3 to 5 days of IV antibiotics prior to changing to oral Continue on IV ceftriaxone as recommended by infectious disease Possible discharge home tomorrow on oral antibiotics ANEMIA SECONDARY TO IRON DEFICIENCY, B12 DEFICIENCY -Iron level 12 Venofer 300 mg IV given Ferrous sulfate twice daily started -Cyanocobalamin 2000 mg p.o. daily started Will need further evaluation and management as an outpatient HYPOPHOSPHATEMIA Phosphorus 2.1 Repleted DEPRESSION Continue 100mg sertraline DVT lovenox Disposition Lives at home Answered questions/queries. Please note the above document was generated using voice recognition software. It may contain grammatical, syntax or spelling errors. Any formal questions or concerns about the content, text or information contained within the body of this dictation should be directly addressed to the provider for clarification Admission and Anticipated Discharge Date Admission Date: April 22, 2023 Subjective Patient seen and examined with ore roaster She is comfortably lying in the bed; not in distress. She reports that she is feeling much better She is afebrile; vitals are stable. Physical Exam 2 Physical Exam: Constitutional: WD/WN, vitals as above, NAD, sitting up in bed, pleasant, conversing easily Respiratory: normal respiratory effort, lungs clear to auscultation, no wheeze, rales, rhonchi. Normal insp/exp effort, no accessory muscle use Cardiovascular: RRR, no murmur, no edema Vessels: no JVD or carotid bruit Chest: normal inspection of chest Abdomen: Costovertebral angle nontender Musculoskeletal: no cyanosis or clubbing, extremities motor strength 5/5 Skin: no rashes, warm and dry normal turgor Neurologic: PERRL, EOMI, accommodation nl, no face palsy, no dysarthria CN's II- XI intact bilaterally and moves all extremities Psychiatric: A+Ox3, euthymic affect Results & Data Results & Data Vital Signs (Past 12 Hours) Vital Signs Temp Pulse Pulse Resp BP BP Pulse Ox 04/24/23 11:28 36.6 C 87 19 129/84 97 04/24/23 07:30 91 H 04/24/23 07:15 36.7 C 90 18 133/86 98 04/24/23 03:09 36.8 C 99 H 16 122/86 97 O2 Del Method 04/24/23 11:28 Room Air 04/24/23 07:30 04/24/23 07:15 Room Air 04/24/23 03:09 Room Air (1) Sepsis Sepsis acute organ dysfunction status: unspecified Sepsis type: sepsis due to unspecified organism Qualified Code(s): A41.9 - Sepsis, unspecified organism
[2023-04-24] MEDS: FERROUS SULFATE 325 MG TAB PO SCH (17:19)
--- NOTE | 2023-04-25 13:47 | Discharge Summary ---
Date of Service April 25, 2023 Admission HPI Per Admitting Provider Ms. Flanagan is a 27 year old woman with past medical history remarkable for depression who presented to [facility] ED due to right flank pain and positive blood culture PCR on 04/20. Patient with symptoms starting last Saturday, marked by dysuria and frequency. Patient states she went to urgent care on Saturday due to flank pain that started on the right side, then to [facility] ED on Saturday. Patient completed 2 days of cefdinir, but presented to ED today at request of ED given blood PCR + for e coli and enterobacterales. In the ED, vitals were notable for BP of 140s-150s, HR of 110-120s, and O2 sat of high 90s on RA. Labs with WBC of 14K (down from 17 04/20), hgb 11.8 (14 day prior), mild hyponatremia 134, mag 1.[address] AB/P 04/20 with findings c/w right ascending pyelonephritis EKG with sinus tachycardia ED interventions: 2L NS, cefepime, tylenol Patient to be admitted to PCU tele for further evaluation and management of sepsis 2/2 acute complicated pyelonephritis with GNR bacteremia Admission Exam Per Admitting Provider GENERAL APPEARANCE: AxOx4, ill appearing woman, no acute distress. HEENT: NC, AT. MMM. EOMI, clear conjunctiva, oropharynx clear. NECK: Supple without lymphadenopathy. No stiffness or restricted ROM. HEART: tachycardic, normal S1/S1, no m/r/g LUNGS: CTAB, moving air well. No crackles or wheezes are heard. ABDOMEN: Soft, nontender, nondistended with good bowel sounds heard. BACK: + right CVAT, no obvious deformity. EXTREMITIES: Without cyanosis, clubbing or edema. NEUROLOGICAL: Grossly nonfocal. Alert and oriented, moving all 4 extremities. CN not formally tested but appear grossly intact. Skin: Warm and dry without any rash. Principal Diagnosis SEPSIS SECONDARY TO ACUTE PYELONEPHRITIS E. coli bacteremia Discharge Exam Constitutional: WD/WN, vitals as above, NAD, sitting up in bed, pleasant, conversing easily Respiratory: normal respiratory effort, lungs clear to auscultation, no wheeze, rales, rhonchi. Normal insp/exp effort, no accessory muscle use Cardiovascular: RRR, no murmur, no edema Vessels: no JVD or carotid bruit Chest: normal inspection of chest Abdomen: Costovertebral angle nontender Musculoskeletal: no cyanosis or clubbing, extremities motor strength 5/5 Skin: no rashes, warm and dry normal turgor Neurologic: PERRL, EOMI, accommodation nl, no face palsy, no dysarthria CN's II- XI intact bilaterally and moves all extremities Psychiatric: A+Ox3, euthymic affect Discharge Data Allergies Allergy/AdvReac Type Severity Reaction Status Date / Time Sulfa (Sulfonamide Allergy Unknown Hives Verified 04/21/23 15:55 Antibiotics) Consultations 04/22/23 18:28 ED Decision to Admit Stat 04/22/23 19:03 Consult Infectious Diseases Routine Hospital Course (1) Sepsis: (2) Pyelonephritis of right kidney: (3) Febrile illness, acute: Plan Ms. Flanagan is a 27 year old woman with past medical history remarkable for depression who presented to [facility] ED due to right flank pain and positive blood culture PCR on 04/20. On presentation, patient had leukocytosis, she was febrile to [address] abdomen and pelvis showed right-sided pyelonephritis Blood culture was positive for E. coli which was pansensitive Infectious disease was consulted; they recommended at least 3 to 5 days of IV antibiotics prior to changing to oral. Patient was started on IV cefepime initially; transition over to IV ceftriaxone as per infectious disease recommendation Patient was afebrile for more than 48 hours at the time of the discharge. Her repeat blood cultures were negative. She was discharged home on 8 days of Augmentin. Please note the above document was generated using voice recognition software. It may contain grammatical, syntax or spelling errors. Any formal questions or concerns about the content, text or information contained within the body of this dictation should be directly addressed to the provider for clarification Total Time Total Time Spent Total Time Spent (In Minutes): 35 Total Time Includes: Examination of the Patient, Discharge Planning, Medication Reconciliation, Communication With Other Providers and Other Discharge Plan Discharge Items Patient Disposition: Home - Self-Care Reason For Visit: BACTEREMIA, PYELONEPHRITIS Discharge Diagnosis: Right-sided pyelonephritis E. coli bacteremia Activity: Resume your previous activity Non-emergency contact: Primary Care Provider Call non-emergency contact if: you have any medication questions and your symptoms worsen Follow-up/Referrals: Iliana Anderson CRNP [Outside Practitioners] - (Date & Time 05/02/2023 3:00 PM Provider Iliana Anderson CRNP Department Family Practice [facility] ) Diet: Regular Addtl Attending Provider Instructions: You were admitted to the hospital due to urinary tract infection including infection on the right kidney. You were also found to have sepsis secondary to the urine tract infection. You were treated with IV antibiotics during the hospitalization. You are prescribed Augmentin to be taken twice daily for 8 more days. Please continue hydration at home; take approximately 2 L of water every day. Please follow-up with your primary care doctor as scheduled. Pending Studies at Discharge: Yes Studies:: HIV and hepatitis C Stand-Alone Forms: My [facility] [employer], Smoking Cessation Medications and DC Order Prescriptions: New cyanocobalamin (vitamin B-12) 500 mcg Tablet 1 mcg PO QAM Qty: 60 0RF amoxicillin-pot clavulanate 875-125 mg tablet 1 tab PO BID 8 Days Qty: 16 0RF Continued norgestimate-ethinyl estradiol [Sprintec (28)] 0.25-35 mg-mcg Tablet 1 tab PO HS sertraline 100 mg Tablet 100 mg PO HS Discontinued cefdinir 300 mg capsule 300 mg PO Q12 Discharge Orders: Discharge Order (Routine); Ordered 04/25/23 Ordered By: Glynn Pollack Admission Data Admit Date/Time: 04/22/23 18:58 Attending Provider: Glynn Pollack Admit Provider: Deneen Dimas Primary Care Provider: PCP,NO Other Providers: Edgardo Solares; Carla Pendleton; Darren Naranjo I.; Derrick Biswas II; Perla Osei; Chong Mg; Oskar Johnson; Justine Acosta; Deneen Dimas Other Interventions: Discharge Summary Assessment (RN) Last Done: 04/25/23 12:15
--- NOTE | 2023-04-26 21:49 | Electrocardiogram Report ---
Test Reason : Blood Pressure : / mmHG Vent. Rate : 086 BPM Atrial Rate : 086 BPM P-R Int : 100 ms QRS Dur : 084 ms QT Int : 390 ms P-R-T Axes : 046 060 012 degrees QTc Int : 466 ms Sinus rhythm with short ID Otherwise normal ECG No previous ECGs available Confirmed by Adam Salcedo ([id number]) on 04/26/2023 9:48:37 PM Referred By: REFERRED SELF Confirmed By:Adam Salcedo
== END 2023-04-25 14:41 | disposition home or self-care (01) | DRG 872 ==
LOC: ED 17:54 → 2S 18:58 → SUATTDRO 18:58 → 2S 22:46